=== PATIENT | female | born 1960 | race Two or more races ===

== ENCOUNTER 2023-04-05 08:58 | Emergency (ER) | payer OTHER ==
[2023-04-05 09:13] VITALS: BP 163/88; PULSE 68; RESP 18; TEMP 98; BMI 30.8
[2023-04-05] MEDS ORDERED: KETOROLAC TROMETHAMINE 30 MG/1 ML VIAL IM ONE (10:17)
[2023-04-05] MEDS ORDERED: LIDOCAINE 5% TOPICAL PATCH TP ONE (10:35)
[2023-04-05] MEDS ORDERED: KETOROLAC TROMETHAMINE 30 MG/1 ML VIAL ONE (10:35)
[2023-04-05] MEDS ORDERED: LIDOCAINE 5% TOPICAL PATCH ONE (10:36)
== END 2023-04-05 11:25 | disposition home or self-care (01) ==
LOC: JER 08:58
PROC: 3E0233Z Introduction of Anti-inflammatory into Muscle, Percutaneous Approach (ICD-10-PCS; principal; 2023-04-05)
DX: M25.561 Pain in right knee (principal)
CPT/HCPCS: 73562-TC-RT-FY; 96372; 99284-25